=== PATIENT | female | born 1985 | race Caucasian/White ===

== ENCOUNTER 2017-06-29 19:59 | Emergency (ER) | payer BC, OTHER ==
--- NOTE | 2017-06-29 20:24 | ED.PDOC ---
History of Present Illness - General Chief Complaint: Lower Extremity Injury Stated Complaint: left ingrown toenail Time Seen by Provider: 06/29/17 20:23 Source: patient Exam Limitations: no limitations - History of Present Illness Initial Comments: Corie Redding 32 y/o female stated that she had been having left toe pain for the last several weeks and had been on antibiotics 2 rounds but not getting better Occurred: other - 2 weeks ago Pain - Lower Extremity: moderate: Left Foot Method of Injury: other - infected ingrown toenail Improving Factors: rest Worsening Factors: movement Allergies/Adverse Reactions: Allergies Meperidine [From Demerol HCl] Allergy (Verified 06/29/17 21:04) Unknown Home Medications: Ambulatory Orders Multiple Vitamins W/ Minerals [Multivitamin Adults] 1 tab PO DAILY 09/11/16 Sulfa/Trimeth 800/160 (Ds) Tab [Bactrim DS Tab] 1 ea PO BID #20 tab 09/11/16 Review of Systems - Review of Systems Constitutional: States: no symptoms reported EENTM: States: no symptoms reported Respiratory: States: no symptoms reported Cardiology: States: no symptoms reported Gastrointestinal/Abdominal: States: no symptoms reported Genitourinary: States: no symptoms reported Musculoskeletal: States: no symptoms reported Skin: States: no symptoms reported Past Medical History (General) - Patient Medical History Hx Seizures: No Hx Stroke: No Hx Dementia: No Hx Asthma: No Hx of COPD: No Hx Cardiac Disorders: No Hx Congestive Heart Failure: No Hx Pacemaker: No Hx Hypertension: No Hx Thyroid Disease: No Hx Diabetes: No Hx Gastroesophageal Reflux: No Hx Renal Disease: No Hx Cancer: No Hx of HIV: No Hx MRSA: No Surgical History: no surgical history - Vaccination History Hx Tetanus, Diphtheria Vaccination: Yes Hx Influenza Vaccination: Yes - 2016 Hx Pneumococcal Vaccination: No - Social History Hx Tobacco Use: No Hx Chewing Tobacco Use: No Hx Alcohol Use: No Hx Substance Use: No Hx Physical Abuse: No Hx Emotional Abuse: No - Female History Hx Last Menstrual Period: 06/27/17 Patient : No Family Medical History - Family History Mother Family History: No Known Living Status: Still Living Physical Exam - Physical Exam General Appearance: Alert, No apparent distress Eyes, Ears, Nose, Throat: PERRL/EOMI, normal ENT inspection Neck: supple Cardiovascular/Respiratory: regular rate, rhythm, normal peripheral pulses, normal breath sounds Gastrointestinal/Abdominal: non-tender Back: no CVA tenderness Thigh/Hip: no evidence of injury Leg: no evidence of injury Knee: no evidence of injury Ankle: no evidence of injury Foot: other - swelling tenderness left big toe with granuloma formation Progress - Progress Progress: 06/29/17 21:58 Left foot soak in soapy water for 20 minutes;Left great toe cleanse with hibiclens prepped and draped in sterile manner;nerve block done around left great toe after achieving adequate analgesia PARTIAL MATRIXELLECTOMY done on left great toe infected ingrown toenail with excision of skin granuloma.Appied sterile pressure dressing Departure - Departure Clinical Impression: Ingrowing toenail with infection Time of Disposition: 22:04 Disposition: Discharge to Home or Self Care Condition: Good Instructions: Ingrown Toenail, DI for Ingrown Toenail Removal, DI for Infected Ingrown Toenail Referrals: Jurgen Waddell MD [Primary Care Provider] - 1-2 Weeks Home Medications: Ambulatory Orders Multiple Vitamins W/ Minerals [Multivitamin Adults] 1 tab PO DAILY 09/11/16 Sulfa/Trimeth 800/160 (Ds) Tab [Bactrim DS Tab] 1 ea PO BID #20 tab 09/11/16 Additional Instructions: RETURN TO EMERGENCY ROOM NEEDED;Elevate left foot 20 degrees at bedtime for 5 -7 days
[2017-06-29] MEDS ORDERED: NEOMYCIN-BACITRACIN-POLYMYXIN 0.9 GM UD TOP ONE (21:23)
[2017-06-29] MEDS ORDERED: LIDOCAINE 1% 10 ML VIAL INJ ONE (21:23)
[2017-06-29] MEDS ORDERED: HYDROCOD/APAP 5/325 (ER DISP) #3 TAB PO ONE (22:05)
[2017-06-29 22:28] VITALS: BP 118/70; TEMP 97; O2SAT 98
== END 2017-06-29 22:20 | disposition home or self-care (01) ==
LOC: ER 19:59
DX: L60.0 Ingrowing nail (principal)

== ENCOUNTER → 2018-01-15 | Outpatient (CLI) | payer BC | LOC: GMAM 14:31 | PROVIDERS: ATTEND Family Medicine | DX: R31.21 Asymptomatic microscopic hematuria (principal) ==

== ENCOUNTER 2019-10-20 09:23 | Emergency (ER) | payer BC ==
[2019-10-20 09:41] VITALS: TEMP 98.3
--- NOTE | 2019-10-20 09:42 | ED.PDOC ---
History of Present Illness - General Chief Complaint: General Stated Complaint: Generalized bodyaches, fever Time Seen by Provider: 10/20/19 09:27 - History of Present Illness Initial Comments: 34yo F presents with fever and body aches waxing and waning over the past 3-4 days. The patient has not noted any associated symptoms including no obvious cough, congestion, abdominal pain, urinary discomfort. She does report intermit tent SOB sensation and a headache when she has fever. She has been taking Tylenol with some mild relief. She denies sick contacts. She did get a flu shot. No other reported issues. Allergies/Adverse Reactions: Allergies Meperidine [From Demerol HCl] Allergy (Verified 06/29/17 21:04) Unknown Home Medications: Ambulatory Orders Cephalexin Monohydrate [Keflex] 500 mg PO BID #14 cap 10/20/19 Review of Systems - Review of Systems Constitutional: States: chills, fever. Denies: weakness EENTM: Denies: eye pain, throat pain Respiratory: States: short of breath. Denies: cough Cardiology: Denies: chest pain, edema Gastrointestinal/Abdominal: States: nausea. Denies: abdominal pain, diarrhea, vomiting Genitourinary: Denies: dysuria, frequency Musculoskeletal: States: muscle pain. Denies: back pain, neck pain Skin: Denies: change in color, rash Neurological: States: headache. Denies: paresthesia, weakness Past Medical History (General) - Patient Medical History Hx Seizures: No Hx Stroke: No Hx Dementia: No Hx Asthma: No Hx of COPD: No Hx Cardiac Disorders: No Hx Congestive Heart Failure: No Hx Pacemaker: No Hx Hypertension: No Hx Thyroid Disease: No Hx Diabetes: No Hx Gastroesophageal Reflux: No Hx Renal Disease: No Hx Cancer: No Hx of HIV: No Hx Hepatitis C: No Hx MRSA: No - Vaccination History Hx Tetanus, Diphtheria Vaccination: Yes Hx Influenza Vaccination: Yes - 2016 Hx Pneumococcal Vaccination: No - Social History Hx Tobacco Use: No Hx Chewing Tobacco Use: No Hx Alcohol Use: No Hx Substance Use: No Hx Substance Use Treatment: No Hx Depression: No Hx Physical Abuse: No Hx Emotional Abuse: No Hx Suspected Abuse: No - Female History Hx Last Menstrual Period: 06/27/17 Patient : No Expected Date of Delivery:: 07/22/13 Family Medical History - Family History Mother Family History: No Known Living Status: Still Living Physical Exam - Physical Exam General Appearance: Alert, Well Developed Eye Exam: bilateral normal Ears, Nose, Throat: normal ENT inspection, normal pharynx Neck: non-tender, full range of motion, supple Respiratory: lungs clear, decreased breath sounds Cardiovascular/Chest: no edema, no murmur Gastrointestinal/Abdominal: normal bowel sounds, non tender, soft Back Exam: normal inspection, no CVA tenderness, no vertebral tenderness Extremity: normal range of motion, non-tender Neurologic: no motor/sensory deficits, alert, oriented x 3 Skin Exam: normal color - no rash Progress - Progress Progress: 10/20/19 10:10 DDX: Influenza, viral illness, dehydration, lyte disorder, pneumonia, UTI. 10/20/19 11:18 Pt feeling improved. HR now normal range. Results reviewed. UA suggestive of UTI. Rocephin ordered. 10/20/19 11:50 The patient remains well appearing. Vital signs currently unremarkable. Leading suspicion for cause of symptoms is UTI at this time. Flu is neg currently. Will cover with abx. Results discussed with patient. We reviewed return warnings and follow up instructions. All questions answered. 10/20/19 11:57 [facility] #[id number] - Results/Orders Results/Orders: 10/20/19 10:17 Urine Culture Stat Laboratory Results - last 24 hr 10/20/19 10/20/19 10/20/19 10:06 10:06 10:17 WBC 9.1 RBC 4.42 Hgb 12.0 Hct 36.9 MCV 83.7 MCH 27.2 MCHC 32.5 L RDW 14.2 Plt Count 243 MPV 8.3 Absolute Neuts (auto) 6.90 H Absolute Lymphs (auto) 1.00 Absolute Monos (auto) 1.00 H Absolute Eos (auto) 0.00 Absolute Basos (auto) 0.00 Neutrophils % 76.7 Lymphocytes % 11.5 L Monocytes % 11.2 H Eosinophils % 0.4 L Basophils % 0.2 Sodium 135 Potassium 3.5 L Chloride 97 L Carbon Dioxide 26 Anion Gap 15.5 BUN 14 Creatinine 0.69 BUN/Creatinine Ratio 20.3 H Random Glucose 96 Serum Osmolality 270.4 L Calcium 9.1 Urine Color Yellow Urine Appearance Sl cloudy Urine pH 5.5 Ur Specific [place] 1.020 Urine Protein 30 Urine Glucose (UA) Negative Urine Ketones 40 H Urine Blood Moderate H Urine Nitrite Negative Urine Bilirubin Small H Urine Urobilinogen 0.2 Ur Leukocyte Esterase Negative Urine RBC 3-5 H Urine WBC 20-30 H Ur Epithelial Cells 5-10 Urine Bacteria 2+ H Urine Mucus Small - EKG/XRAY/CT XRAY: chest - No acute findings: see formal read Departure - Departure Clinical Impression: Fever Qualifiers: Fever type: unspecified Qualified Code(s): R50.9 - Fever, unspecified Urinary tract infection Qualifiers: Urinary tract infection type: site unspecified Hematuria presence: without hematuria Qualified Code(s): N39.0 - Urinary tract infection, site not specified Disposition: Discharge to Home or Self Care Departure Forms: ED Discharge - Pt. Copy, Patient Portal Self Enrollment Instructions: Urinary Tract Infections in Adults, Fever of Unknown Origin Referrals: Jurgen Waddell MD [Primary Care Provider] - 1-2 Weeks Prescriptions: Cephalexin Monohydrate [Keflex] 500 mg PO BID #14 cap Home Medications: Ambulatory Orders Cephalexin Monohydrate [Keflex] 500 mg PO BID #14 cap 10/20/19
[2019-10-20] MEDS ORDERED: LACTATED RINGERS 1,000 ML IVS ONE (09:46)
[2019-10-20] MEDS ORDERED: KETOROLAC TROMETHAMINE INJ 30 MG/ML VIAL IV ONE (09:47)
--- NOTE | 2019-10-20 10:20 | RAD ---
EXAM: XR Chest, 1 View CLINICAL HISTORY: SOB TECHNIQUE: Frontal view of the chest. COMPARISON: No relevant prior studies available. FINDINGS: Limitations: None. Lungs: Unremarkable. No consolidation. Pleural space: Unremarkable. No pneumothorax. Heart: Unremarkable. No cardiomegaly. Mediastinum: Unremarkable. Bones/joints: Unremarkable. IMPRESSION: No abnormality noted. Electronically signed by: Kae Cordova MD 10/20/2019 10:18 AM [employer]
[2019-10-20] MEDS ORDERED: cefTRIAXone SODIUM 1 GM in SODIUM CHL 0.9% 50ML MIN-BAG+ 50 ML IVPB ONE ×4 (11:13)
[2019-10-20] MEDS ORDERED: cefTRIAXone SODIUM 1 GM VIAL ONE (11:36)
[2019-10-20] MEDS ORDERED: SODIUM CHL 0.9% 50ML MIN-BAG+ 50 ML IVPB ONE (11:37)
[2019-10-20 12:23] VITALS: BP 112/74; O2SAT 96
== END 2019-10-20 12:22 | disposition home or self-care (01) ==
LOC: ER 09:23
DX: N39.0 Urinary tract infection, site not specified (principal); R06.02 Shortness of breath; R51 Headache; Z88.8 Allergy status to other drugs, medicaments and biological substances
CPT/HCPCS: 36415; 71045; 80048; 81001; 85025; 87077; 87086; 87186; 87502; J0696; J1885; J7050; J7120

== ENCOUNTER → 2020-07-25 | Outpatient (CLI) | payer OTHER | LOC: YCFC.O 11:52 | PROVIDERS: ATTEND Nurse Practitioner Family | DX: Z03.818 Encounter for observation for suspected exposure to other biological agents ruled out (principal) ==